=== PATIENT | female | born 1945 | race Caucasian/White ===

== ENCOUNTER 2023-03-18 15:32 | Emergency (ER) | payer MEDICARE, SELFPAY ==
--- NOTE | 2023-03-18 15:36 | ED.FEMALEGU ---
HPI - Female Genitourinary General Chief complaint: Urogenital-Female Stated complaint: uti Time Seen by Provider: 03/18/23 15:36 Source: patient Mode of arrival: ambulatory Limitations: no limitations History of Present Illness HPI Narrative: Patient is a 77-year-old female who presents with 5 days of urinary frequency, urinary urgency and burning with urination. Patient [place] from out of town, called primary care provider and was told to come to urgent care to have urine culture. Denies any fever, chills, nausea, vomiting, diarrhea, low back pain. Has history of bladder cancer with 4 tumors removed. Cancer free for almost 12 months. MD elicited complaint: dysuria Related Data Home Medications Medication Instructions Recorded Confirmed albuterol 90 mcg/actuation aerosol 1 mcg inhalation PRN Shortness Of 03/18/23 inhaler Breath alprazolam 0.25 mg tablet 0.25 mg PRN PRN Anxiety 03/18/23 03/18/23 atorvastatin 20 mg tablet 20 mg DAILY 03/18/23 03/18/23 cholecalciferol (vitamin D3) 125 5,000 unit DAILY 03/18/23 03/18/23 mcg (5,000 unit) capsule (Dialyvite Vitamin D) escitalopram oxalate 20 mg tablet 20 mg DAILY 03/18/23 03/18/23 estradiol 2 mg (7.5 mcg/24 hour) 1 vag ring vaginal 03/18/23 vaginal ring (Estring) tramadol 50 mg tablet 50 mg PRN PRN Pain 03/18/23 03/18/23 Allergies Allergy/AdvReac Type Severity Reaction Status Date / Time ceftriaxone [From Rocephin] Allergy Rash Verified 03/18/23 15:50 Sulfa (Sulfonamide Allergy Rash Verified 03/18/23 15:50 Antibiotics) vancomycin Allergy Rash Verified 03/18/23 15:50 Review of Systems Review of Systems: All systems reviewed & are unremarkable except as noted in HPI and below Constitutional: Constitutional: Denies chills, Denies fever(s), Denies headache(s), Denies malaise and Denies weakness Eyes: Eyes: Denies change in vision, Denies eye discharge and Denies irritation ENT: Denies otalgia, Denies headache(s), Denies nasal congestion, Denies nasal discharge, Denies sinus pain and Denies sore throat Cardiovascular: Cardiovascular: Denies chest pain, Denies edema, Denies palpitations and Denies dyspnea Respiratory: Respiratory: Denies cough and Denies dyspnea Gastrointestinal: Gastrointestinal: Denies abdominal pain, Denies diarrhea, Denies nausea and Denies vomiting Genitourinary: Genitourinary: Denies hematuria, Reports nocturia, Reports dysuria, Denies flank pain and Reports urinary urgency Musculoskeletal: Musculoskeletal: Denies back pain and Denies numbness Integumentary/Breasts: Skin/Breast: Denies pruritus and Denies rash Neurologic: Denies headache(s), Denies numbness and Denies weakness Psychiatric: Psychiatric: Reports no additional psychiatric complaints Endocrine: Endocrine: Denies palpitations PMFSH Comments At time of signature, agree with nursing past medical, surgical, social and family history. There is no relevant family history pertinent to the presenting complaint. Exam Const: General: cooperative, healthy appearing, comfortable, no acute distress and well nourished Nutritional Appearance: well nourished Orientation/consciousness: patient oriented x3 HENMT: Head: normocephalic and atraumatic Ears: external ears normal Face/Nose/Sinus: Normal external nose present, Normal nares present and normal facial exam Face and sinus: normal facial exam Eyes: General: appearance normal, both eyes and all related structures Pupils: Equal, round and reactive pupils present EOM: EOMs intact bilaterally Neck: Neck: normal visual inspection, full ROM and supple Chest: Chest palpation & inspection: normal inspection of the chest Resp: Effort & Inspection: normal respiratory effort and able to speak in complete sentences Cardio: Rate: regular rate Rhythm: regular rhythm GI: Inspection: normal to inspection GI Palp: No abdominal tenderness and Yes Soft to palpation : General: Yes no CVA tenderness Back/Spine/Pelvis: Back
[2023-03-18 15:51] VITALS: BP 146/78; PULSE 69; RESP 16; TEMP 36.6; O2SAT 99
== END 2023-03-18 16:20 | disposition home or self-care (01) ==
PROVIDERS: Emergency Provider Nurse Practitioner Family
DX: N39.0 Urinary tract infection, site not specified (principal)
CPT/HCPCS: 81003; 87086; 99213; G0463